=== PATIENT | female | born 1965 | race Caucasian/White ===

== ENCOUNTER 2022-12-24 11:50 | Emergency (ER) | payer OTHER, SELFPAY ==
[2022-12-24 11:51] VITALS: BP 157/93; PULSE 72; RESP 16; TEMP 35.1; O2SAT 100
[2022-12-24 12:00] VITALS: BMI 29.6
--- NOTE | 2022-12-24 12:09 | RAD_ITS ---
INDICATION: injury EXAMINATION/TECHNIQUE: X-RAY - RIGHT XR Ankle Min 3 Views 3 VIEWS COMPARISON: No relevant prior comparison study available FINDINGS: SOFT TISSUES: No soft tissue swelling or gas. No radiopaque foreign body. BONES/JOINTS: No acute fracture or subluxation.. Normal alignment. Preservation of the joint space.. No sclerotic or destructive changes observed. RAD/Ankle min 3 Views IMPRESSION: Negative. Electronically Signed: Kelsey Taylor MD at 13:35 EDT ,
--- NOTE | 2022-12-24 12:11 | ED.VIS.LOWEX ---
HPI History of Present Illness Chief Complaint: Lower Extremity Injury Detail of Chief Complaint: Right ankle injury Informant: patient Narrative Narrative: Patient presents after slipping on a box at work and injuring her right ankle. She denies any other injury from the fall. She has not tried to bear weight. She denies any prior ankle surgeries. [facility] Medical History No acute medical problems Home Medications NK 12/24/22 [History Last Taken Unknown] Allergy/AdvReac Type Severity Reaction Status Date / Time No Known Allergies Allergy Verified 12/24/22 11:59 Social History Smoking Status: Never smoker ROS ROS ED Constitutional Constitutional ED: Denies chills or fever(s) Eyes Eyes: Denies change in vision ENT ENT ED: Denies rhinorrhea or sore throat Cardiovascular Cardiovascular: Denies chest pain Respiratory/Chest Respiratory/Chest: Denies cough or dyspnea Gastrointestinal Gastrointestinal: Denies abdominal pain, nausea or vomiting Musculoskeletal Musculoskeletal: Reports extremity pain; Denies back pain Integumentary Denies Abrasions or rash Neurologic Neurologic: Denies headache(s), paresthesias or weakness Psychiatric Psychiatric: Denies anxiety or depression Allergic/Immunologic Allergic/Immunologic ED: Denies lip swelling or urticaria EXAM Physical Exam Const Vital Signs: 12/24/22 11:51 Temperature 95.2 F L Temperature Source Temporal Pulse Rate 72 Respiratory Rate 16 Blood Pressure 157/93 H Blood Pressure Mean 114 Pulse Ox 100 Oxygen Delivery Method Room Air Positive well nourished and well developed General Appearance ED: well developed HEENT Reports normocephalic and head/scalp atraumatic Eyes PERRL and EOMs intact bilaterally Neck supple Chest Wall inspection of chest normal and palpation of chest normal Resp normal respiratory effort and clear to auscultation bilaterally Cardio regular rate and regular rhythm GI non-tender Palpation: soft Extremity Extremity Narrative: Mild tenderness of the lateral malleolus of the right ankle. No significant edema. No tenderness over the foot with strong distal pulses. Normal sensation. No tenderness at the knee or proximal fibula. Neuro oriented x3 and no sensory deficits noted Sensorium / Orientation: alert Motor Exam: strength 5/5 throughout Psych mental status grossly normal Skin no rashes or lesions noted MDM MDM MDM Narrative Medical decision making narrative: Patient was given ibuprofen prior to arrival. Ice pack placed. X-rays of the right ankle obtained to evaluate for fracture. Differential diagnosis includes fracture, sprain, strain, contusion. Radiography Diagnostic Testing: Clinical Impression(s) from Imaging Studies Ankle X-Ray 12/24/22 12:09 IMPRESSION: Negative. Electronically Signed: Kelsey Taylor MD at 13:35 EDT , Treatment and Re-Evaluation Narrative: Right ankle x-rays per my interpretation reveal no obvious fracture. Radiology interpretation is reviewed and agrees. Air stirrup splint will be given. She will be ambulated and can be given crutches if needed. Weight bear as tolerated. [facility] Discharge Plan Triage Chief Complaint: Lower Extremity Injury ED Provider: Roseline Farmer Dx/Rx/DC Orders Clinical Impression: Right ankle sprain Instructions: ED Ankle Sprain (Adult) Prescriptions: No Action NK Stand Alone Forms: Work Status Form Primary Care Provider: Care Physician,No Primary Referrals: [facility] [Group of Physicians] - 3-5 Days NOT,DEFINED [Non-Staff] - Disposition Disposition: Home, Self Care
[2022-12-24 14:21] VITALS: PULSE 65; RESP 18; O2SAT 100
== END 2022-12-24 14:22 | disposition home or self-care (01) ==
PROVIDERS: Emergency Provider Emergency Medicine; Visit Provider Emergency Medicine
DX: S93.401A Sprain of unspecified ligament of right ankle, initial encounter (principal); W19.XXXA Unspecified fall, initial encounter
CPT/HCPCS: 73610; 99283